=== PATIENT | male | born 1970 | race Two or more races ===

== ENCOUNTER 2022-11-20 15:45 | Emergency (ER) | payer MEDICAID ==
[~2022-11-20] VITALS: Ht 180.3 cm; Wt 78.0 kg
[2022-11-20 16:23] VITALS: PULSE 84; RESP 18; O2SAT 95
[2022-11-20 16:29] LABS: Basophils # (auto) 0.1 10 ^3/uL (0-0.2); Basophils % (auto) 0.7 % (0.0-2.0); Eosinophils # (auto) 0.1 10 ^3/uL (0-0.8); Eosinophils % (auto) 0.9 % (0.0-7.0); Hematocrit 42.1 % (41.0-53.0); Hemoglobin 14.2 g/dL (13.5-17.5); Lymphocytes # (auto) 2.2 10 ^3/uL (0.4-5.4); Lymphocytes % (auto) 18.6 % (10.0-50.0); Mean Corpuscular Hemoglobin 30.5 pg (28.0-32.0); Mean Corpuscular Hgb Conc. 33.8 g/dL (32.0-36.0); Mean Corpuscular Volume 90.3 fL (80.0-100.0); Monocytes % (auto) 8.3 % (0.0-12.0); Neutrophils # (auto) 8.4 10 ^3/uL (1.6-8.6); Neutrophils % (auto) 71.5 % (37.0-80.0); Nucleated Red Blood Cells % 0.1 %; Red Blood Cells 4.67 10^6/uL (4.5-5.90); White Blood Cell 11.8 10^3/uL (4.4-10.8)
[2022-11-20 16:42] LABS: Albumin 4.4 g/dL (3.2-4.8); Alkaline Phosphatase 60 U/L (46-116); Anion Gap 7 (5-15); Aspartate Aminotransferase 24 U/L (13-40); Calcium 8.9 mg/dL (8.7-10.4); Carbon Dioxide 26 mmol/L (20-30); Chloride 105 mmol/L (98-107); Glucose 145 mg/dL (74-106); Sodium 138 mmol/L (136-145)
[2022-11-20 16:43] LABS: Bilirubin, Total 0.8 mg/dL (0.2-1.0); Total Protein 6.7 g/dL (5.7-8.2)
[2022-11-20 17:29] LABS: Alanine Aminotransferase 21 U/L (7-40); BUN/Creatinine Ratio 8.2 (10.0-20.0); Blood Urea Nitrogen 7 mg/dL (9-23); Potassium 4.3 mmol/L (3.5-5.1)
[2022-11-20 17:46] LABS: INR 1.17 (0.9-1.15); Prothrombin Time 12.2 sec (9.3-11.8)
[2022-11-20] MEDS ORDERED: ASPirin 81 mg TAB PO ONE (18:45)
[2022-11-20] MEDS ORDERED: CYCLOBENZAPRINE HCL 10 MG TAB PO ONE (18:45)
[2022-11-20 19:40] VITALS: PULSE 70; RESP 14; O2SAT 94
[2022-11-20 20:00] VITALS: BP 126/72; PULSE 70; RESP 14; TEMP 97.8; O2SAT 94
[2022-11-20] MEDS ORDERED: MELO-335 PO (20:59)
[2022-11-20] MEDS ORDERED: CYCL-839 PO (20:59)
== END 2022-11-20 21:29 | disposition home or self-care (01) ==
LOC: ER 15:45
DX: R07.89 Other chest pain (principal)
CPT/HCPCS: 36415; 71045; 80053; 84484; 85025; 85610; 85730; 93005